=== PATIENT | male | born 1985 | race Two or more races ===

== ENCOUNTER 2017-11-10 14:21 | Emergency (ER) | payer SELFPAY ==
[2017-11-10 14:32] VITALS: BP 125/68
--- NOTE | 2017-11-10 15:08 | ER Document Report ---
HPI - HPI Patient complains to provider of: Abscess under left axilla Onset: Last week Onset/Duration: Gradual, Persistent Pain Level: 4 Context: 32-year-old nondiabetic male with no history of MRI hidradenitis suppurativa that he has multiple abscesses under his left axilla for a week or so. 1 of them is spontaneously draining. No fever or chills. Associated Symptoms: None Exacerbated by: Denies Relieved by: Denies Similar symptoms previously: No Recently seen / treated by doctor: No - ROS ROS below otherwise negative: Yes Systems Reviewed and Negative: Yes All other systems reviewed and negative Past Medical History - General Information source: Patient - Social History Smoking Status: Current Every Day Smoker Frequency of alcohol use: None Drug Abuse: None Lives with: Family Family History: None - Medical History Medical History: Negative Infectious Medical History: Denies: Hx MRSA Surgical Hx: Negative Vertical Provider Document - CONSTITUTIONAL Agree With Documented VS: Yes Exam Limitations: No Limitations - INFECTION CONTROL TRAVEL OUTSIDE OF THE [place] IN LAST 30 DAYS: No - DERM Integumentary: Abscess - tender to follicular abscess that need to be incised left axilla, midline 1 abscess already draining, do not look like they are communicating based on the induration. Course - Vital Signs Vital signs: Temp Pulse Resp BP Pulse Ox 98.8 F 81 16 125/68 99 11/10/17 14:30 11/10/17 14:30 11/10/17 14:30 11/10/17 14:30 11/10/17 14:30 Procedures - Incision and Drainage Left Arm Time completed: 16:31 Type: Simple Anesthetic type: 1% Lidocaine mL's of anesthetic: 3 - x 3 abscess Blade size: 11 I&D procedure: Betadine prep applied Incision Method: Incision made by scalpel - x 3 abscess drained, corner of 4 x 4 packing Discharge - Discharge Clinical Impression: Left axilla folliculitis abscess 2, I &D 2 abscess Condition: Good Disposition: HOME, SELF-CARE Instructions: Acetaminophen, Bactroban Ointment ([facility]), Ibuprofen (General) ([facility] ), Trimethoprim-Sulfa ([facility]), Warm Packs ([facility]) Additional Instructions: Warm compress Wash with antibacterial soap daily Finish antibiotics Tylenol up to 4000 mg per day for pain Motrin for pain and inflammation See the general surgeon if this persists Bactroban ointment small amount each nostril twice a day for 5 days Prescriptions: Ibuprofen [Motrin 600 mg Tablet] 600 mg PO Q8HP PRN #30 tablet PRN Reason: Sulfamethoxazole/Trimethoprim [Sulfamethoxazole-Tmp Ds Tablet] 1 each PO BID # 14 tablet Forms: Return to Work
[2017-11-10] MEDS ORDERED: ACETAMINOPHEN 325 MG TABLET PO ONE (15:15)
[2017-11-10] MEDS ORDERED: SULFAMETHOXAZOLE/TRIMETHOPRIM 800-160 MG TABLET PO ONE (15:15)
[2017-11-10] MEDS ORDERED: IBUPROFEN 600 MG TABLET PO ONE (15:15)
[2017-11-10] MEDS ORDERED: MUPIROCIN 2% OINTMENT 22 GM TP ONE (15:16)
== END 2017-11-10 16:47 | disposition home or self-care (01) ==
LOC: ER 14:21
DX: L02.412 Cutaneous abscess of left axilla (principal); L73.9 Follicular disorder, unspecified; F17.200 Nicotine dependence, unspecified, uncomplicated
CPT/HCPCS: 99283; 10061; J3490

== ENCOUNTER 2018-01-15 07:20 | Observation (INO) | payer SELFPAY ==
[2018-01-15] MEDS ORDERED: LIDOCAINE 1%/EPINEPHRINE INJ 20 ML VIAL INJ ONE (07:32)
[2018-01-15] MEDS ORDERED: NORMAL SALINE 1000 ML 1,000 ML IV ONE (07:32)
[2018-01-15] MEDS ORDERED: DIPH/PERTUSS(ACELL)/TETANUS VAC/PF 0.5 ML SYR (>=10YO) IM ONE (07:33)
[2018-01-15] MEDS ORDERED: BUPIVACAINE HCL 0.5 % INJ/PF 30 ML SDV INJ ONE (07:33)
[2018-01-15] MEDS ORDERED: CEFAZOLIN 1 GM/D5W RTU 1 GM/50 ML RTUPB IV ONE (07:34)
[2018-01-15] MEDS ORDERED: ONDANSETRON HCL INJ/PF 4 MG/2 ML SDV IV ONE (07:59)
[2018-01-15] MEDS ORDERED: MORPHINE SULFATE 10 MG/ML INJ IV ONE (07:59)
[2018-01-15] MEDS ORDERED: FENTANYL CITRATE INJ/PF 100 MCG/2 ML AMPUL ONE ×2 (08:11→08:39)
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
[2018-01-15] MEDS ORDERED: GLYCOPYRROLATE 1 MG/5 ML SYRINGE ONE (08:15)
[2018-01-15] MEDS ORDERED: LIDOCAINE 2% INJ-PF (20 MG/ML) 2 ML AMPUL ONE (08:15)
[2018-01-15] MEDS ORDERED: METOCLOPRAMIDE HCL INJ/PF 10 MG/2 ML SDV ONE (08:15)
[2018-01-15] MEDS ORDERED: ONDANSETRON HCL INJ/PF 4 MG/2 ML SDV ONE (08:15)
[2018-01-15] MEDS ORDERED: DEXAMETHASONE SOD PHOSPHATE INJ 4 MG/1 ML VIAL ONE (08:15)
[2018-01-15 08:16] LABS: ABSOLUTE BASOPHILS # (AUTO) 0.1 10^3/uL (0.0-0.2); ABSOLUTE EOSINOPHILS # (AUTO) 0.1 10^3/uL (0.0-0.6); ABSOLUTE MONOCYTES (AUTO) 0.5 10^3/uL (0.1-1.4); ABSOLUTE NEUT (AUTO) 6.3 10^3/uL (1.7-8.2); BASOPHILS % (AUTO) 0.7 % (0-2); EOSINOPHILS % (AUTO) 0.9 % (0-6); HEMATOCRIT 38.6 % (37.9-51.0); MEAN CORPUSCULAR HEMOGLOBIN 29.4 pg (27.0-33.4); MEAN CORPUSCULAR HGB CONC 33.6 g/dL (32.0-36.0); MEAN CORPUSCULAR VOLUME 87 fl (80-97); MONOCYTES % (AUTO) 5.2 % (3-13); PLATELET COUNT 409 10^3/uL (150-450); RED BLOOD COUNT 4.42 10^6/uL (4.35-5.55); RED CELL DISTRIBUTION WIDTH 14.6 % (11.5-14.0); SEGMENTED NEUTROPHILS % (AUTO) 71.2 % (42-78); TOTAL CELLS COUNTED % (AUTO) 100 %; WHITE BLOOD COUNT 8.9 10^3/uL (4.0-10.5)
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
[2018-01-15 08:36] LABS: ANION GAP 6 (5-19); BLOOD UREA NITROGEN 11 mg/dL (7-20); CARBON DIOXIDE 25 mmol/L (22-30); CHLORIDE 106 mmol/L (98-107); GLUCOSE 136 mg/dL (75-110); POTASSIUM 4.4 mmol/L (3.6-5.0); SODIUM 137.4 mmol/L (137-145)
[2018-01-15] MEDS ORDERED: KETAMINE HCL INJ 500 MG/10 ML VIAL ONE (08:38)
[2018-01-15] MEDS ORDERED: PROPOFOL INJ 200 MG/20 ML VIAL IV ONE ×2 (08:39)
[2018-01-15] MEDS ORDERED: ACETAMINOPHEN 1,000 MG/100 ML RTUPB IV ONE (08:39)
[2018-01-15] MEDS ORDERED: MIDAZOLAM 2 MG/2 ML INJ ONE (08:39)
[2018-01-15] MEDS ORDERED: LIDOCAINE 1% INJ-PF (10 MG/ML) 30 ML SDV ONE (08:43)
[2018-01-15] MEDS ORDERED: HYDROMORPHONE HCL INJ/PF 2 MG/ML AMPULE ONE (09:27)
[2018-01-15] MEDS ORDERED: DIPHENHYDRAMINE HCL 50 MG/ML VIAL IV PRN (10:48)
[2018-01-15] MEDS ORDERED: FENTANYL CITRATE INJ/PF 100 MCG/2 ML AMPUL IV PRN ×3 (10:48)
[2018-01-15] MEDS ORDERED: MEPERIDINE HCL/PF INJ 25 MG/1 ML DISP.SYRIN IV PRN (10:48)
[2018-01-15] MEDS ORDERED: ONDANSETRON HCL INJ/PF 4 MG/2 ML SDV IV PRN ×2 (10:48→12:23)
[2018-01-15] MEDS ORDERED: PROMETHAZINE HCL INJ 25 MG/1 ML VIAL IV PRN ×2 (10:48)
[2018-01-15] MEDS ORDERED: NORMAL SALINE 1000 ML 1,000 ML IV PRN (12:24)
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
[2018-01-15] MEDS ORDERED: CEFAZOLIN 1 GM/D5W RTU 1 GM/50 ML RTUPB IV SCH (14:00)
[2018-01-15] MEDS ORDERED: HYDROMORPHONE HCL INJ/PF 2 MG/ML AMPULE IV ONE (16:30)
[2018-01-15] MEDS ORDERED: KETOROLAC TROMETHAMINE INJ/PF 30 MG/1 ML SDV IV SCH (18:00)
[2018-01-15 20:17] VITALS: BP 143/64
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
== END 2018-01-15 20:50 | disposition home or self-care (01) ==
LOC: ER 07:20 → EH 08:25 → 4S 12:55
PROVIDERS: ADMIT Surgery; ATTEND Surgery
PROC: 01Q40ZZ Repair Ulnar Nerve, Open Approach (ICD-10-PCS; 2018-01-15)
PROC: 03LA0ZZ Occlusion of Left Ulnar Artery, Open Approach (ICD-10-PCS; principal; 2018-01-15 08:45)
DX: S55.012A Laceration of ulnar artery at forearm level, left arm, initial encounter (principal); S54.02XA Injury of ulnar nerve at forearm level, left arm, initial encounter; S56.822A Laceration of other muscles, fascia and tendons at forearm level, left arm, initial encounter; S51.812A Laceration without foreign body of left forearm, initial encounter; X99.9XXA Assault by unspecified sharp object, initial encounter
CPT/HCPCS: 01810; 36415; 80048; 85025; 86850; 86900; 86901; 96360; 99284; C1763; C9250; G0378; J0131; J0690; J1100; J1170; J1885; J2250; J2405; J2704; J2765; J3010; J3490; J7030

== ENCOUNTER 2018-03-20 16:03 | Emergency (ER) | payer SELFPAY ==
[2018-03-20 16:14] VITALS: BP 132/72
[2018-03-20] MEDS ORDERED: AMOXICILLIN TRIHYDRATE 500 MG CAPSULE PO ONE (17:40)
[2018-03-20] MEDS ORDERED: IBUPROFEN 600 MG TABLET PO ONE (17:40)
--- NOTE | 2018-03-20 17:43 | ER Document Report ---
HPI - HPI Time Seen by Provider: 03/20/18 17:26 Pain Level: 4 Notes: Patient is an otherwise healthy 32-year-old male who presents to the emergency department with chief complaint of bilateral ear pain with drainage from the right ear. Patient reports the pain started on Tuesday in the left ear. He reports that now most of his pain is in the right ear and he does have occasional drainage. Patient does have a history of otitis media, states this feels similar. Patient has not taken any medications for same. - CONSTITUTIONAL Constitutional: DENIES: Fever, Chills - EENT EENT: REPORTS: Ear Pain - R ear. DENIES: Sore Throat - NEURO Neurology: DENIES: Headache, Weakness, Vision blurred, Dizzinesss / Vertigo - CARDIOVASCULAR Cardiovascular: DENIES: Chest pain - RESPIRATORY Respiratory: DENIES: Trouble Breathing, Coughing - GASTROINTESTINAL Gastrointestinal: DENIES: Abdominal Pain, Black / Bloody Stools - URINARY Urinary: DENIES: Dysuria, Urgency, Frequency - MUSCULOSKELETAL Musculoskeletal: DENIES: Extremity pain Past Medical History - General Information source: Patient - Social History Smoking Status: Never Smoker Frequency of alcohol use: None Drug Abuse: None Family History: None Patient has suicidal ideation: No Patient has homicidal ideation: No - Medical History Medical History: Negative Renal/ Medical History: Denies: Hx Peritoneal Dialysis Psychiatric Medical History: Denies: Hx Depression Infectious Medical History: Denies: Hx MRSA Surgical Hx: Negative - Immunizations Immunizations up to date: Yes Vertical Provider Document - CONSTITUTIONAL Notes: PHYSICAL EXAMINATION: GENERAL: Well-appearing, well-nourished and in no acute distress. HEAD: Atraumatic, normocephalic. EYES: Pupils equal round extraocular movements intact, conjunctiva are normal. ENT: Nares patent, left tympanic membrane bright red and bulging. Right tympanic membrane mildly erythematous. NECK: Normal range of motion LUNGS: No respiratory distress Musculoskeletal: Normal range of motion NEUROLOGICAL: Normal speech, normal gait. PSYCH: Normal mood, normal affect. SKIN: Warm, Dry, normal turgor, no rashes or lesions noted. - INFECTION CONTROL TRAVEL OUTSIDE OF THE [place] IN LAST 30 DAYS: No Course - Re-evaluation Re-evalutation: 03/20/18 17:41 History and examination is consistent with otitis media. Patient will placed on amoxicillin. - Vital Signs Vital signs: Temp Pulse Resp BP Pulse Ox 99.3 F 86 16 132/72 H 97 03/20/18 16:10 03/20/18 16:10 03/20/18 16:10 03/20/18 16:10 03/20/18 16:10 Discharge - Discharge Clinical Impression: Otitis media Qualifiers: Otitis media type: unspecified Laterality: left Qualified Code(s): H66.92 - Otitis media, unspecified, left ear Condition: Stable Disposition: HOME, SELF-CARE Additional Instructions: OTITIS MEDIA: You have a middle ear infection (otitis media). This is usually a complication of a cold or sore throat. The middle ear cavity becomes filled with infection. Pressure and stretching of the ear drum cause pain. Antibiotics are required. A 10 day course is usually prescribed. A decongestant may be recommended if you have a "runny nose." You may need anesthetic drops or other pain medication. A follow-up exam may be recommended to make sure the infection has completely cleared. If the ear begins to drain, it means the ear drum has ruptured. This will usually heal spontaneously. However, it means you should keep the ear dry until re-examined by a doctor. Call the physician or return for examination at once if there is severe headache, stiff neck, confusion, increasing fever, or dizziness. You should improve significantly within two days. If you're not better, call the doctor. AMOXICILLIN: Amoxicillin is a member of the penicillin family. It covers the germs likely to cause ear, bronchial, and urinary infections better than plain penicillin. Amoxicillin can be taken without regard to meals. Nausea after taking the medication is rare, but can occur. Diarrhea can occur, particularly in small children. Vaginal yeast infections and oral thrush in infants are also common. Contact your physician if these problems occur. Allergy to penicillins is common. If you have had an allergic reaction to any drug of the penicillin family, you should never take any other penicillin. Notify your doctor at once if you develop hives, itching, swelling, faintness, or shortness of breath. Less serious side effects can include nausea or diarrhea. USE OF ACETAMINOPHEN (Tylenol): Acetaminophen may be taken for pain relief or fever control. It's much safer than aspirin, offering a wider range of "safe" dosages. It is safe during . Some brand names are Tylenol, Panadol, Datril, Anacin 3, Tempra, and Liquiprin. Acetaminophen can be repeated every four hours. The following are maximum recommended dosages: WEIGHT Dose Drops Elixir Chewable( 80mg) (LBS.) drprs=droppers tsp=teaspoon >89 pounds or adults 650 mg to 900 mg Acetaminophen can be repeated every four hours. Maximum dose not to exceed 4000 mg a day. These maximum recommended dosages are slightly higher than the dosages written on the product container, but these dosages are very safe and below the toxic dosage for acetaminophen. FOLLOW-UP CARE: If you have been referred to a physician for follow-up care, call the physician s office for an appointment as you were instructed or within the next two days. If you experience worsening or a significant change in your symptoms, notify the physician immediately or return to the Emergency Department at any time for re-evaluation. Please take medication as prescribed. Please finish the entire course of antibiotics even if your symptoms resolve. Take ibuprofen 600 mg every 6 hours for pain and inflammation. Prescriptions: Amoxicillin 1 tab PO TID #30 tab Forms: Return to Work
== END 2018-03-20 18:10 | disposition home or self-care (01) ==
LOC: ER 16:03
DX: H66.92 Otitis media, unspecified, left ear (principal); H92.03 Otalgia, bilateral
CPT/HCPCS: 99282